=== PATIENT | male | born 1950 | race Caucasian/White ===

== ENCOUNTER 2017-07-27 00:11 | Emergency (ER) | payer OTHER ==
[~2017-07-27] VITALS: Ht 180.3 cm; Wt 95.4 kg
[~2017-07-27 00:11] MED LIST: ADULT LOW DOSE81 M1 PO; COREG CR80 MG; LOTENSIN5 MG PO; MYFORTIC360 MG; PREDNISONE2.5 MG PO; PROGRAF1 MG PO
[2017-07-27 02:00] LABS: HEMATOCRIT 36.5 % (38.0-50.0); HEMOGLOBIN 12.2 G/DL (12.5-16.6); MCH 29.1 PG (29.0-34.0); MCHC 33.4 G/DL (30.0-36.0); MCV 87.1 FL (86-99); PLATELET COUNT 86 K/uL (156-360); RBC DIS.WIDTH-CV 14.3 % (11.8-14.6); RBC DIS.WIDTH-SD 45.1 % (39-53); RED BLOOD COUNT 4.19 M/uL (4.00-5.50); WHITE BLOOD COUNT 6.7 K/uL (4.1-10.2)
[2017-07-27 02:09] LABS: PTT 32.8 SEC (25-37)
[2017-07-27 02:15] LABS: CHLORIDE 103 mEq/L (99-109); POTASSIUM 3.9 mEq/L (3.7-5.4); SODIUM 141 mEq/L (136-147)
[2017-07-27 02:17] LABS: GLUCOSE 101 mg/dL (70-99)
[2017-07-27 02:21] LABS: CREATININE 1.9 mg/dL (0.6-1.3); GFR ESTIMATE (CALCULATED) 38 mL/min/ (58.99-99999)
[2017-07-27 02:22] LABS: UREA NITROGEN (BUN) 23 mg/dL (9-23)
[2017-07-27] MEDS ORDERED: AUGMENTIN875 MG PO (03:54)
[2017-07-27 04:19] VITALS: BP 143/78
== END 2017-07-27 04:19 | disposition home or self-care (01) ==
LOC: EME 00:11
PROVIDERS: Emergency Medicine
PROC: 09Q0XZZ Repair Right External Ear, External Approach (ICD-10-PCS; principal; 2017-07-27)
DX: S00.411A Abrasion of right ear, initial encounter (principal); I12.9 Hypertensive chronic kidney disease with stage 1 through stage 4 chronic kidney disease, or unspecified chronic kidney disease; N18.3 Chronic kidney disease, stage 3 (moderate); W54.8XXA Other contact with dog, initial encounter; Z94.0 Kidney transplant status; Z79.01 Long term (current) use of anticoagulants; Z79.82 Long term (current) use of aspirin; E78.5 Hyperlipidemia, unspecified; F41.9 Anxiety disorder, unspecified; I48.91 Unspecified atrial fibrillation; N40.0 Benign prostatic hyperplasia without lower urinary tract symptoms; Z87.891 Personal history of nicotine dependence
CPT/HCPCS: 80048; 85027; 85610; 85730; 99281; 99284

== ENCOUNTER 2017-08-14 17:44 | Emergency (ER) | payer OTHER ==
[~2017-08-14] VITALS: Ht 180.3 cm; Wt 101.3 kg
[~2017-08-14 17:44] MED LIST changes: +AUGMENTIN875 MG PO
[2017-08-14 21:18] VITALS: BP 157/71
== END 2017-08-14 21:23 | disposition home or self-care (01) ==
LOC: EME 17:44
PROC: 0HQ1XZZ Repair Face Skin, External Approach (ICD-10-PCS; principal; 2017-08-14)
DX: S09.8XXA Other specified injuries of head, initial encounter (principal); S01.111A Laceration without foreign body of right eyelid and periocular area, initial encounter; W07.XXXA Fall from chair, initial encounter; I12.9 Hypertensive chronic kidney disease with stage 1 through stage 4 chronic kidney disease, or unspecified chronic kidney disease; N18.3 Chronic kidney disease, stage 3 (moderate); Z94.0 Kidney transplant status; Z79.82 Long term (current) use of aspirin; Z87.891 Personal history of nicotine dependence
CPT/HCPCS: 70450; 99281; 99284